=== PATIENT | male | born 1985 | race Two or more races ===

== ENCOUNTER 2023-07-07 09:06 | Emergency (ER) | payer MEDICAID ==
[~2023-07-07] VITALS: Ht 172.7 cm; Wt 100.0 kg
[2023-07-07 09:42] LABS: Basophils # (auto) 0.1 10 ^3/uL (0-0.2); Basophils % (auto) 0.5 % (0.0-2.0); Eosinophils # (auto) 0 10 ^3/uL (0-0.8); Eosinophils % (auto) 0.3 % (0.0-7.0); Hematocrit 46.9 % (41.0-53.0); Hemoglobin 15.7 g/dL (13.5-17.5); Lymphocytes # (auto) 0.5 10 ^3/uL (0.4-5.4); Lymphocytes % (auto) 4.4 % (10.0-50.0); Mean Corpuscular Hemoglobin 30.3 pg (28.0-32.0); Mean Corpuscular Hgb Conc. 33.5 g/dL (32.0-36.0); Mean Corpuscular Volume 90.6 fL (80.0-100.0); Monocytes # (auto) 1.1 10 ^3/uL (0-1.3); Monocytes % (auto) 9.9 % (0.0-12.0); Neutrophils # (auto) 9.2 10 ^3/uL (1.6-8.6); Neutrophils % (auto) 84.9 % (37.0-80.0); Nucleated Red Blood Cells % 0.1 %; Red Blood Cells 5.18 10^6/uL (4.5-5.90); Red Cell Distribution Width 16.2 % (11.8-14.3); White Blood Cell 10.8 10^3/uL (4.4-10.8)
[2023-07-07 10:01] LABS: Alanine Aminotransferase 19 U/L (7-40); Albumin 4.9 g/dL (3.2-4.8); Alkaline Phosphatase 139 U/L (46-116); Anion Gap 13 (5-15); Aspartate Aminotransferase 14 U/L (13-40); BUN/Creatinine Ratio 10.4 (10.0-20.0); Blood Urea Nitrogen 10 mg/dL (9-23); Calcium 9.7 mg/dL (8.5-10.1); Carbon Dioxide 19 mmol/L (20-30); Chloride 103 mmol/L (98-107); Glucose 110 mg/dL (74-106); Potassium 4.1 mmol/L (3.5-5.1); Sodium 135 mmol/L (136-145)
[2023-07-07 10:02] LABS: Bilirubin, Total 0.6 mg/dL (0.2-1.0); Total Protein 8.1 g/dL (5.7-8.2)
[2023-07-07 12:44] VITALS: BP 119/83; TEMP 98.1
[2023-07-07 12:53] VITALS: PULSE 105; RESP 17; O2SAT 100
[2023-07-07] MEDS ORDERED: IBUPROFEN 800 MG TAB PO ONE (13:00)
== END 2023-07-07 12:55 | disposition home or self-care (01) ==
LOC: ER 09:06
DX: R07.89 Other chest pain (principal); R51.9 Headache, unspecified
CPT/HCPCS: 36415; 71046; 80053; 84484; 85025; 85379; 93005

== ENCOUNTER 2024-12-06 15:27 | Emergency (ER) | payer MEDICAID, OTHER ==
[~2024-12-06] VITALS: Ht 172.7 cm; Wt 104.0 kg
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
--- NOTE | 2024-12-06 17:02 | DVH ---
CLINICAL INDICATION: Pain 4V XRAY left knee Comparison: None FINDINGS/IMPRESSION: : There is no evidence of acute fracture or dislocation. Soft tissues are unremarkable.
[2024-12-06] MEDS ORDERED: IBU600T PO (17:23)
[2024-12-06 19:57] VITALS: BP 125/79; PULSE 80; RESP 20; TEMP 98.1; O2SAT 96
== END 2024-12-06 20:50 | disposition home or self-care (01) ==
LOC: EDBD 15:27 → ER 15:34
DX: S80.02XA Contusion of left knee, initial encounter (principal); Z87.898 Personal history of other specified conditions; V43.62XA Car passenger injured in collision with other type car in traffic accident, initial encounter; Y93.89 Activity, other specified; Y92.89 Other specified places as the place of occurrence of the external cause; Y99.8 Other external cause status
CPT/HCPCS: 73564